=== PATIENT | female | born 1965 | race Caucasian/White ===

== ENCOUNTER → 2016-12-30 | Outpatient (CLI) | payer BC ==
[~2016-12-30] MED LIST: GLUMETZA500 PO; MAGOX 400400 MG PO
== END ==
LOC: RAD 01:55
DX: Z12.31 Encounter for screening mammogram for malignant neoplasm of breast (principal)

== ENCOUNTER → 2018-01-07 | Outpatient (CLI) | payer BC | LOC: RAD 01-04 02:24 | DX: Z12.31 Encounter for screening mammogram for malignant neoplasm of breast (principal) ==